=== PATIENT | female | born 1950 | race Caucasian/White ===

== ENCOUNTER → 2016-11-29 | Outpatient (CLI) | payer MEDICARE ==
--- NOTE | 2016-11-29 13:23 | MM ---
Reason for exam: screening (asymptomatic). Last mammogram was performed 1 year and 3 months ago. History: Patient is postmenopausal. Benign US LT VAD breast biopsy of the left breast, September 30, 2013. Benign US LT VAD breast biopsy of the left breast, September 30, 2013. Benign left US cyst aspiration of the left breast, May 26, 2008. Benign US left guided mammotome of the left breast, May 26, 2008. Cyst aspiration of the left breast, 1995. Excisional biopsy of the left breast, 1995. Cyst aspiration of the left breast. Took estrogen for 30 years beginning at age 29. Physical Findings: A clinical breast exam by your physician is recommended on an annual basis and results should be correlated with mammographic findings. MG 3D Screening Mammo W/Cad Bilateral CC and MLO view(s) were taken. Prior study comparison: August 26, 2015, bilateral MG 3d diag mammo w/cad [facility]. April 02, 2014, left breast MG diagnostic mammo LT w CAD. The breast tissue is heterogeneously dense. This may lower the sensitivity of mammography. Finding #1: Architectural distortion in the upper quadrant of the left breast. Finding #2: There are typically benign round calcifications in both breasts. Right asymmetric breast tissue anterior position, stable. Previous mammotome biopsy in the left breast x 3. There is a chronic nodularity in the right breast. There is no new dominant lesion. ASSESSMENT: Benign, BI-RAD 2 RECOMMENDATION: Routine screening mammogram of both breasts in 1 year.
== END | disposition home or self-care (01) ==
LOC: RADMAMWWP 07:03
PROVIDERS: ATTEND Internal Medicine Geriatric Medicine
DX: Z12.31 Encounter for screening mammogram for malignant neoplasm of breast (principal)
CPT/HCPCS: 77063; G0202

== ENCOUNTER → 2017-04-18 | Outpatient (CLI) | payer MEDICARE ==
--- NOTE | 2017-04-18 13:59 | US ---
EXAMINATION TYPE: US carotid duplex BILAT DATE OF EXAM: 04/18/2017 COMPARISON: US CLINICAL HISTORY: Dizziness R42. Intermittent dizziness and lightheadedness x couple months EXAM MEASUREMENTS: RIGHT: Peak Systolic Velocity (PSV) cm/sec ----- Right CCA: 83.9 ----- Right ICA: 93.9 ----- Right ECA: 134.6 ICA/CCA ratio: 1.1 RIGHT: End Diastole cm/sec ----- Right CCA: 19.0 ----- Right ICA: 35.8 ----- Right ECA: 19.2 LEFT: Peak Systolic Velocity (PSV) cm/sec ----- Left CCA: 107.1 ----- Left ICA: 124.6 ----- Left ECA: 82.9 ICA/CCA ratio: 1.2 LEFT: End Diastole cm/sec ----- Left CCA: 21.8 ----- Left ICA: 33.7 ----- Left ECA: 14.1 VERTEBRALS (direction of flow): Right Vertebral: Antegrade Left Vertebral: Antegrade Bilateral intimal thickening, plaque bilateral bulb, elevated velocity: right mid ECA, no significant stenosis. Atheromatous plaquing is evident. Intimal thickening is present on the left. IMPRESSION: Borderline narrowing of the left internal carotid artery estimated at approximately 50% Criteria for Assigning % of Stenosis / Diameter reduction (Estimation based on the indirect measurements of the internal carotid artery velocities (ICA PSV). 1. Normal (no stenosis)=ICA PSV < 125 cm/s: ratio < 2.0: ICA EDV<40 cm/s. 2. Less than 50% stenosis=ICA PSV < 125 cm/s: ratio < 2.0: ICA EDV<40 cm/s. 3. 50 to 69% stenosis=ICA PSV of 125 to 230 cm/s: ration 2.0 ? 4.0: ICA EDV 40-100 cm/s. 4. Greater than 70% stenosis to near occlusion= ICA PSV > 230 cm/s: ratio > 4.0: ICA EDV > 100 cm/s. 5. Near occlusion= ICA PSV velocities may be low or undetectable: variable ratio and ICA EDV. 6. Total occlusion=unable to detect flow.
== END | disposition home or self-care (01) ==
LOC: RADUSWWP 12:08
PROVIDERS: ATTEND Internal Medicine Geriatric Medicine
DX: I65.22 Occlusion and stenosis of left carotid artery (principal)
CPT/HCPCS: 93880

== ENCOUNTER → 2018-09-23 | Outpatient (CLI) | payer MEDICARE ==
--- NOTE | 2018-09-23 09:42 | BD ---
EXAMINATION TYPE: Axial Bone Density DATE OF EXAM: 09/23/2018 COMPARISOn: 2016 CLINICAL HISTORY: osteoporosis Height: 5'3 Weight: 185 FRAX RISK QUESTIONS: Secondary Osteoporosis: 3. Menopause before 45: y RISK FACTORS HISTORY OF: Postmenopausal woman: y MEDICATIONS: Additional Medications: peripheral neuropathy, blood pressure, cholesterol , sleep aid Additional History: EXAM MEASUREMENTS: Bone mineral densitometry was performed using the [employer] System. Bone mineral density as measured about the Lumbar spine is: ----- L1-L4(G/cm2): 1.254 T Score Values are as follows: ----- L2: -0.3 ----- L3: 0.5 ----- L4: 1.4 ----- L1-L4: 0.6 Bone mineral density has: Increased 2.0% since study of: 02/16/2016 Bone mineral density about the R hip (g/cm2): 0.882 Bone mineral density about the L hip (g/cm2): 0.925 T Score values are as follows: -----R Neck: -1.1 -----L Neck:-0.8 -----R Total: 0.2 -----L Total: 0.2 Bone mineral density has: Decreased -1.8% since study of: 02/16/2016 IMPRESSION: Osteopenia (T Score between -2.5 and -1). There is slightly increased risk of fracture and the patient may be considered for treatment. Re-Screen 2-5 years. NOTE: T-SCORE=SD OF THE YOUNG ADULT MEAN.
== END | disposition home or self-care (01) ==
LOC: RADBDWWP 06:59
PROVIDERS: ATTEND Internal Medicine Geriatric Medicine
DX: M85.851 Other specified disorders of bone density and structure, right thigh (principal)
CPT/HCPCS: 77080

== ENCOUNTER → 2018-10-02 | Outpatient (CLI) | payer MEDICARE ==
--- NOTE | 2018-10-03 11:55 | MM ---
Reason for exam: screening (asymptomatic). Last mammogram was performed 1 year and 10 months ago. History: Patient is postmenopausal. Benign US LT VAD breast biopsy of the left breast, September 30, 2013. Benign US LT VAD breast biopsy of the left breast, September 30, 2013. Benign left US cyst aspiration of the left breast, May 26, 2008. Benign US left guided mammotome of the left breast, May 26, 2008. Cyst aspiration of the left breast, 1995. Excisional biopsy of the left breast, 1995. Cyst aspiration of the left breast. Took estrogen for 30 years beginning at age 29. Physical Findings: A clinical breast exam by your physician is recommended on an annual basis and results should be correlated with mammographic findings. MG 3D Screening Mammo W/Cad Bilateral CC and MLO view(s) were taken. Prior study comparison: November 29, 2016, bilateral MG 3d screening mammo w/cad. August 26, 2015, bilateral MG 3d diag mammo w/cad [facility]. The breast tissue is heterogeneously dense. This may lower the sensitivity of mammography. Stable benign calcifications. There is chronic nodularity bilaterally. No significant changes when compared with prior studies. ASSESSMENT: Benign, BI-RAD 2 RECOMMENDATION: Routine screening mammogram of both breasts in 1 year.
== END | disposition home or self-care (01) ==
LOC: RADMAMWWP 09:21
PROVIDERS: ATTEND Internal Medicine Geriatric Medicine
DX: Z12.31 Encounter for screening mammogram for malignant neoplasm of breast (principal)
CPT/HCPCS: 77063; 77067

== ENCOUNTER → 2019-10-03 | Outpatient (CLI) | payer MEDICARE ==
--- NOTE | 2019-10-06 13:55 | MM ---
Reason for exam: screening (asymptomatic). Last mammogram was performed 1 year ago. History: Patient is postmenopausal and has history of other cancer at age 68. Benign US LT VAD breast biopsy of the left breast, September 30, 2013. Benign US LT VAD breast biopsy of the left breast, September 30, 2013. Benign left US cyst aspiration of the left breast, May 26, 2008. Benign US left guided mammotome of the left breast, May 26, 2008. Cyst aspiration of the left breast, 1995. Excisional biopsy of the left breast, 1995. Cyst aspiration of the left breast. Took hormonal contraceptives for 30 years. Took estrogen for 30 years beginning at age 29. Physical Findings: A clinical breast exam by your physician is recommended on an annual basis and results should be correlated with mammographic findings. MG 3D Screening Mammo W/Cad Bilateral CC and MLO view(s) were taken. Prior study comparison: October 02, 2018, bilateral MG 3d screening mammo w/cad. November 29, 2016, bilateral MG 3d screening mammo w/cad. The breast tissue is heterogeneously dense. This may lower the sensitivity of mammography. Benign appearing bilateral calcifications. No suspicious abnormality. Multiple left biopsy markers noted. No significant changes when compared with prior studies. ASSESSMENT: Benign, BI-RAD 2 RECOMMENDATION: Routine screening mammogram of both breasts in 1 year.
== END | disposition home or self-care (01) ==
LOC: RADMAMWWP 07:32
PROVIDERS: ATTEND Internal Medicine Geriatric Medicine
DX: Z12.31 Encounter for screening mammogram for malignant neoplasm of breast (principal)
CPT/HCPCS: 77063; 77067

== ENCOUNTER → 2021-12-19 | Outpatient (CLI) | payer MEDICARE ==
--- NOTE | 2021-12-20 11:48 | MM ---
Reason for exam: screening (asymptomatic). Last mammogram was performed 2 years and 3 months ago. History: Patient is postmenopausal and has history of other cancer at age 68. Benign US LT VAD breast biopsy of the left breast, September 30, 2013. Benign US LT VAD breast biopsy of the left breast, September 30, 2013. Benign left US cyst aspiration of the left breast, May 26, 2008. Benign US left guided mammotome of the left breast, May 26, 2008. Cyst aspiration of the left breast, 1995. Excisional biopsy of the left breast, 1995. Cyst aspiration of the left breast. Took hormonal contraceptives for 30 years. Took estrogen for 30 years beginning at age 29. Physical Findings: A clinical breast exam by your physician is recommended on an annual basis and results should be correlated with mammographic findings. MG 3D Screening Mammo W/Cad Bilateral CC and MLO view(s) were taken. Prior study comparison: October 03, 2019, bilateral MG 3d screening mammo w/cad. October 02, 2018, bilateral MG 3d screening mammo w/cad. The breast tissue is heterogeneously dense. This may lower the sensitivity of mammography. Benign appearing bilateral calcifications. Previous mammotome biopsy in the left breast. No significant changes when compared with prior studies. ASSESSMENT: Benign, BI-RAD 2 RECOMMENDATION: Routine screening mammogram of both breasts in 1 year.
== END | disposition home or self-care (01) ==
LOC: RADMAMWWP 12:44
PROVIDERS: ATTEND Internal Medicine Geriatric Medicine
DX: Z12.31 Encounter for screening mammogram for malignant neoplasm of breast (principal); Z78.0 Asymptomatic menopausal state
CPT/HCPCS: 77063; 77067

== ENCOUNTER → 2022-12-21 | Outpatient (CLI) | payer MEDICARE ==
--- NOTE | 2022-12-21 17:59 | BD ---
EXAMINATION TYPE: Axial Bone Density DATE OF EXAM: 12/21/2022 CLINICAL HISTORY: 72 years old Female. ICD-10 CODE: M810 AGE RELATED OSTEO Height: 62.5 in Weight: 188 lbs FRAX RISK QUESTIONS: Secondary Osteoporosis: 3. Menopause before 45: partial hysterectomy age 29 RISK FACTORS HISTORY OF: Active: yes Diet low in dairy products/other sources of calcium: yes Postmenopausal woman: partial hysterectomy age 29 Take estrogen and/or progesterone medications: not now How long: took for 30 years MEDICATIONS: Thyroid Medications: yes Which medication: armor How Lon year Additional Medications: blood pressure meds, neuropathy meds, cholesterol meds, sleep aid EXAM MEASUREMENTS: Bone mineral densitometry was performed using the [employer] System. Bone mineral density as measured about the Lumbar spine is: ----- L1-L4(G/cm2): 1.212 T Score Values are as follows: ----- L1: -0.9 ----- L2: -0.9 ----- L3: 1.0 ----- L4: 1.3 ----- L1-L4: 0.3 Z Score Values are as follows: ----- L1: 0.2 ----- L2: 0.2 ----- L3: 2.1 ----- L4: 2.0 ----- L1-L4: 1.3 Bone mineral density has: Decreased -1.7% since study of: 02/16/2016; study on 09/23/2018 not availab le Bone mineral density about the R hip (g/cm2): 0.969 Bone mineral density about the L hip (g/cm2): 0.992 T Score values are as follows: -----R Neck: -1.3 -----L Neck: -1.0 -----R Total: -0.3 -----L Total: -0.1 Z Score values are as follows: -----R Neck: 0.2 -----L Neck: 0.5 -----R Total: 0.9 -----L Total: 1.1 Bone mineral density has: Decreased -6.7% since study of: 02/16/2016; study on 09/23/2018 not availab le FRAX%s: The graph provided illustrates a 9.7% chance for a major osteoporotic fx and a 1.5% chance fo r the hips probability for fx in 10 years time. IMPRESSION: Osteopenia (T Score between -2.5 and -1). There is slightly increased risk of fracture and the patient may be considered for treatment. Re-Screen 2-5 years. NOTE: T-SCORE=SD OF THE YOUNG ADULT MEAN.
--- NOTE | 2022-12-21 19:33 | MM ---
Reason for Exam: Screening (asymptomatic). Last screening mammogram was performed 12 month(s) ago. Patient History: Menarche at age 8. First Full-Term at age 24. Hysterectomy at age 26. Postmenopausal. Other cancer, age 68. Estrogen for 30 years from age 29 until age 58. Patient used Hormonal Contraceptives for 30 years. 1995, Cyst Aspiration on the Left side. Cyst Aspiration on the Left side. 1995, Excisional Biopsy on the Left side. 09/30/2013, Benign Core Biopsy on the left side. 09/30/2013, Benign Core Biopsy on the left side. 05/26/2008, Benign Cyst Aspiration on the left side. 05/26/2008, Benign Core Biopsy on the left side. Risk Values: Celeste 5 year model risk: 3.2%. NCI Lifetime model risk: 7.4%. Prior Study Comparison: 08/26/2015 Bilateral Diagnostic Mammogram, [facility]. 11/29/2016 Bilateral Screening Mammogram, [facility]. 10/02/2018 Bilateral Screening Mammogram, [facility]. 10/03/2019 Bilateral Screening Mammogram, [facility]. 12/19/2021 Bilateral Screening Mammogram, [facility]. Tissue Density: The breast tissue is heterogeneously dense. This may lower the sensitivity of mammography. Findings: Analyzed By CAD. There are bilateral renal cysts, vascular, secretory calcifications are demonstrated. 3 microclips in the left breast from prior biopsies. There is no suspicious group of microcalcifications or new suspicious mass in either breast. Overall Assessment: Benign, BI-RAD 2 Management: Screening Mammogram of both breasts in 1 year. . Patient should continue monthly self-breast exams. A clinical breast exam by your physician is recommended on an annual basis. This exam should not preclude additional follow-up of suspicious palpable abnormalities. Note on Celeste scores and lifetime risk: 1. A Celeste score greater than 3% is considered moderate risk. If this is the case, consider specialist referral to assess eligibility for a risk reducing agent. 2. If overall lifetime risk for the development of breast cancer is 20% or higher, the patient may qualify for future screening with alternating mammogram and breast MRI. Electronically signed and approved by: Sage Rodriguez M.D. Radiologist
== END | disposition home or self-care (01) ==
LOC: RADMAMWWP 06:41
PROVIDERS: ATTEND Internal Medicine Geriatric Medicine
DX: Z12.31 Encounter for screening mammogram for malignant neoplasm of breast (principal); M81.0 Age-related osteoporosis without current pathological fracture; M85.89 Other specified disorders of bone density and structure, multiple sites; R92.8 Other abnormal and inconclusive findings on diagnostic imaging of breast; Z78.0 Asymptomatic menopausal state
CPT/HCPCS: 77063; 77067; 77080

== ENCOUNTER → 2024-02-20 | Outpatient (CLI) | payer MEDICARE ==
--- NOTE | 2024-02-20 14:22 | CA ---
Transthoracic Echo Report Name: Polina Hunt Age: 73 Gender: F : 1950 Exam Date: 02/20/2024 11:25 Exam Location: [facility] Ht (in): 62 Wt (lb): 185 Ordering Physician: Hussein Palomino MD Attending/Referring Phys: Lakisha Velasquez [facility] Email Marketing Specialist Aliyah Gupta RDCS Procedure CPT: Indications: R06.02 SHORTNESS OF BREATH Cardiac Hx: Technical Quality: Good Contrast 1: Total Dose (mL): Contrast 2: Total Dose (mL): MEASUREMENTS (Male / Female) Normal Values 2D ECHO LV Diastolic Diameter PLAX 4.6 cm 4.2 - 5.9 / 3.9 - 5.3 cm LV Systolic Diameter PLAX 2.6 cm IVS Diastolic Thickness 1.0 cm 0.6 - 1.0 / 0.6 - 0.9 cm LVPW Diastolic Thickness 1.0 cm 0.6 - 1.0 / 0.6 - 0.9 cm LV Relative Wall Thickness 0.4 RV Internal Dim ED PLAX 3.0 cm LA Systolic Diameter LX 4.0 cm 3.0 - 4.0 / 2.7 - 3.8 cm LV Diastolic Volume MOD BP 79.2 cm??? 67 - 155 / 56 - 104 cm??? LV Systolic Volume MOD BP 29.1 cm??? - 58 / 19 - 49 cm??? LV Ejection Fraction MOD BP 63.3 % >= 55 % LV Cardiac Index MOD BP 1745.7 cm???/min???m??? LV Diastolic Volume MOD 4C 84.7 cm??? LV Systolic Volume MOD 4C 33.0 cm??? LV Ejection Fraction MOD 4C 61.0 % LV Cardiac Index MOD 4C 1801.0 cm???/min???m??? LV Diastolic Length 4C 6.6 cm LV Systolic Length 4C 5.5 cm LV Diastolic Volume MOD 2C 73.2 cm??? LV Systolic Volume MOD 2C 23.5 cm??? LV Ejection Fraction MOD 2C 67.9 % LV Cardiac Index MOD 2C 1731.7 cm???/min???m??? LV Diastolic Length 2C 6.7 cm LV Systolic Length 2C 5.0 cm LA Volume 68.8 cm??? 18 - 58 / 22 - 52 cm??? LA Volume Index 35.2 cm???/m??? 16 - 28 cm???/m??? M-MODE Aortic Root Diameter MM 2.6 cm LA Systolic Diameter MM 4.0 cm LA Ao Ratio MM 1.6 AV Cusp Separation MM 1.5 cm DOPPLER MV Area PHT 2.2 cm??? Mitral E Point Velocity 69.1 cm/s Mitral A Point Velocity 98.2 cm/s Mitral E to A Ratio 0.7 MV Deceleration Time 338.0 ms TR Peak Velocity 233.0 cm/s TR Peak Gradient 21.7 mmHg Right Ventricular Systolic Press 25.9 mmHg FINDINGS Left Ventricle Left ventricular ejection fraction is estimated at 55-60 %. Normal left ventricular systolic function with no obvious regional wall motion abnormalities. Left ventricular cavity size normal. Right Ventricle Normal right ventricular size and function. Right ventricular systolic pressure within normal limits. Right Atrium Normal right atrial size. Left Atrium Mildly increased left atrial diameter. Moderately increased left atrial volume. Mitral Valve Structurally normal mitral valve. [id number] mitral regurgitation. No mitral stenosis. Aortic Valve Trileaflet aortic valve. Diffuse thickening (sclerosis) of the aortic valve cusps without reduced excursion. No aortic regurgitation. Tricuspid Valve Structurally normal tricuspid valve. Mild tricuspid regurgitation. Pulmonic Valve Structurally normal pulmonic valve. Trace pulmonic regurgitation. Pericardium No pericardial or pleural effusion. Aorta Normal size aortic root and proximal ascending aorta. CONCLUSIONS Left ventricular ejection fraction 55-60% RVSP 26 Mild to moderately dilated left atrium [id number] mitral regurgitation Mild tricuspid regurgitation No pericardial effusion Previewed by: Dr. Cm Wilson DO (Electronically Signed) Final Date: 20 February 2024 14:21
== END | disposition home or self-care (01) ==
LOC: RADECHMAIN 10:29
PROVIDERS: ATTEND Internal Medicine Geriatric Medicine
DX: R06.02 Shortness of breath (principal); I08.1 Rheumatic disorders of both mitral and tricuspid valves
CPT/HCPCS: 93306

== ENCOUNTER → 2024-07-09 | Outpatient (CLI) | payer MEDICARE ==
--- NOTE | 2024-07-11 12:59 | MM ---
Reason for Exam: Screening (asymptomatic). Last mammogram was performed 1 year(s) and 6 month(s) ago. Patient History: Menarche at age 8. First Full-Term at age 24. Left ovary removed at age 26. Right ovary removed at age 26. Hysterectomy at age 26. Postmenopausal. Other cancer, age 68. Estrogen for 30 years from age 29 until age 58. Patient used Hormonal Contraceptives for 30 years. 1995, Cyst Aspiration on the Left side. Cyst Aspiration on the Left side. 1995, Excisional Biopsy on the Left side. 09/30/2013, Benign Core Biopsy on the left side. 09/30/2013, Benign Core Biopsy on the left side. 05/26/2008, Benign Cyst Aspiration on the left side. 05/26/2008, Benign Core Biopsy on the left side. Risk Values: Celeste 5 year model risk: 3.2%. NCI Lifetime model risk: 6.9%. Prior Study Comparison: 10/03/2019 Bilateral Screening Mammogram, [facility]. 12/19/2021 Bilateral Screening Mammogram, [facility]. 12/21/2022 Bilateral MG 3D screening mammo w/cad, [facility]. Tissue Density: The breasts are heterogeneously dense, which may obscure small masses. Findings: Analyzed By CAD. Bilateral benign vascular, secretory, round calcifications. Areas of asymmetric density are unchanged. There is no suspicious group of microcalcifications or new suspicious mass in either breast. Overall Assessment: Benign, BI-RAD 2 Management: Screening Mammogram of both breasts in 1 year. See note below in regards to patient's increased 5 year Celeste score. Patient should continue monthly self-breast exams. A clinical breast exam by your physician is recommended on an annual basis. This exam should not preclude additional follow-up of suspicious palpable abnormalities. Note on Celeste scores and lifetime risk: 1. A Celeste score greater than 3% is considered moderate risk. If this is the case, consider specialist referral to assess eligibility for a risk reducing agent. 2. If overall lifetime risk for the development of breast cancer is 20% or higher, the patient may qualify for future screening with alternating mammogram and breast MRI. [facility], , 07/11/2024 12:56 PM. Electronically signed and approved by: Sage Rodriguez M.D. Radiologist
== END | disposition home or self-care (01) ==
LOC: RADMAMWWP 07:21
PROVIDERS: ATTEND Internal Medicine Geriatric Medicine
DX: Z12.31 Encounter for screening mammogram for malignant neoplasm of breast (principal); Z90.722 Acquired absence of ovaries, bilateral; Z78.0 Asymptomatic menopausal state; R92.333 Mammographic heterogeneous density, bilateral breasts
CPT/HCPCS: 77063; 77067